=== PATIENT | female | born 1970 | race Caucasian/White ===

== ENCOUNTER 2016-05-17 15:20 | Emergency (ER) | payer MEDICAID ==
[2016-05-17 15:43] VITALS: BP 144/94
--- NOTE | 2016-05-17 17:52 | EDM.PDOC ---
ED HPI SEIZURE COMPLAINT - General Chief Complaint: Syncope Stated Complaint: BLACKING OUT Time Seen by Provider: 05/17/16 16:05 Source: Reports: Patient History Limitations: Reports: No limitations - History of Present Illness INITIAL COMMENTS - FREE TEXT/NARRATIVE: 45-year-old female with a lot of physical complaints but her chief one is that she passed out 3 times today. This has been ongoing recurring problem along with back pain, dizziness, knee pain, anxiety, insomnia, and had an appointment with her psychologist today but didn't make it because she was brought here by her boyfriend instead. She recently was started on Synthroid which seemed to help her symptoms for 2 days but is not helping now. Event (Witnessed/Unwitnessed): unwitnessed Quality: Denies: generalized shaking Severity: mild Pre Event Symptom(s): Reports: headaches, nausea/vomiting, syncope, weakness Event Symptoms: Reports: headaches, other (Photophobia) Associated Injuries: Reports: other (No injuries) - Related Data Allergies/ADRs: Allergies Allergy/AdvReac Type Severity Reaction Status Date / Time amitriptyline Allergy Change Verified 05/19/16 08:09 Mental Status duloxetine [From Cymbalta] Allergy Cannot Verified 05/17/16 15:56 Remember Home Meds: Home Meds Omeprazole [priLOSEC OTC] 80 mg PO ASDIRECTED PRN 04/12/15 [History] Pramipexole [Mirapex] 0.5 mg PO TID 04/12/15 [History] Meclizine [Antivert] 25 mg PO TID 05/05/16 [History] Levothyroxine 25 mcg PO ACBREAKFAST 05/15/16 [History] Magnesium Amino Acid Chelate [Magnesium] 100 mg PO DAILY 05/15/16 [History] Sertraline [Zoloft] 25 mg PO DAILY 05/15/16 [History] oxyCODONE HCl/Acetaminophen [Oxycodone-Acetaminophen 5-325] 1 each PO BID PRN [History] traZODone 400 mg PO BEDTIME 05/15/16 [History] Past Medical History HEENT History: Reports: Impaired vision, Other (see below) Other HEENT History: Needs a tooth extraction. 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 degenarative disc disease with bulging discs. bad si joint, right side. Neurological History: Reports: Migraines Psychiatric History: Reports: Addiction, Anxiety, Depression Endocrine/Metabolic History: Reports: Hypothyroidism Dermatologic History: Reports: Other (see below) Other Dermatologic History: intermittent rash left leg - Infectious Disease History Infectious Disease History: Reports: Chicken pox - Past Surgical History GI Surgical History: Reports: Cholecystectomy, Colonoscopy Female Surgical History: Reports: Hysterectomy, Salpingo-oophorectomy, Tubal ligation Musculoskeletal Surgical History: Reports: Knee replacement Social & Family History - Family History Family Medical History: Noncontributory - Tobacco Use Smoking Status *Q: Current Every Day Smoker Years of Tobacco use: 18 Packs/Tins Daily: 1 Used Tobacco, but Quit: No Second Hand Smoke Exposure: Yes - Caffeine Use Caffeine Use: Reports: Soda - Recreational Drug Use Recreational Drug Use: No Drug Use in Last 12 Months: Yes Recreational Drug Type: Reports: Marijuana/Hashish Recreational Drug Use Frequency: Weekly ED ROS GENERAL - Review of Systems Review Of Systems: See Below Constitutional: Reports: malaise, weakness. Denies: fever, chills HEENT: Reports: No symptoms Respiratory: Denies: shortness of breath Cardiovascular: Denies: Chest pain Endocrine: Reports: fatigue GI/Abdominal: Reports: Abdominal pain, Nausea, Other (Patient has horrible reflux). Denies: Vomiting Musculoskeletal: Reports: back pain, leg pain, joint pain Skin: Reports: no symptoms Neurological: Reports: dizziness, headache, change in speech Psychiatric: Reports: Anxiety, Depression - Physical Exam Exam: See Below Exam Limited By: No limitations General Appearance: alert, no apparent distress Eye Exam: bilateral eye: EOMI Respiratory/Chest: no respiratory distress, lungs clear Cardiovascular: regular rate, rhythm. No: extra beats GI/Abdominal: soft, other (Even mild palpation of the abdomen causes her to react with tenderness) Neuro Exam (Abbreviated): alert, oriented, no motor/sensory deficits Back Exam: other (Light palpation to the lower back or right buttock causes intense pain) Psychiatric: anxious, depressed mood Skin Exam: Warm, Dry Course - Vital Signs Last Recorded V/S: Last Vital Signs Temp 98.4 F 05/17/16 15:46 Pulse 81 05/17/16 15:46 Resp 16 05/17/16 15:46 BP 144/94 H 05/17/16 15:46 Pulse Ox 97 05/17/16 15:46 Orthostatic Blood Pressure [ 123/95 Standing] Orthostatic Blood Pressure [ 131/89 Sitting] Orthostatic Blood Pressure [ 129/83 Supine] - Re-Assessments/Exams Free Text/Narrative Re-Assessment/Exam: 05/17/16 17:50 Reviewed the clinic records and her TSH was only 4.4. Her free T4 was normal. We checked orthostatics here in the emergency room they were normal. I don't see a benefit in checking more labs as there is an obvious anxiety overlay with her symptoms and Hussain Steinberg was kind enough to come and visit with the patient after she missed her appointment earlier. Departure - Departure Time of Disposition: 18:15 Disposition: Home, Self-Care 01 Condition: good Clinical Impression: Syncope Qualifiers: Syncope type: psychogenic syncope Qualified Code(s): F48.8 - Other specified nonpsychotic mental disorders Chronic back pain Qualifiers: Back pain location: low back pain Back pain laterality: midline Sciatica presence: without sciatica Qualified Code(s): M54.5 - Low back pain Instructions: Back Pain, Adult, Syncope, [id number] Referrals: Rowan Bran PA [Primary Care Provider] - Forms: ED Department Discharge Care Plan Goals: Follow advice for followup given by Dr. Rosario. Continue regular medications and increase activity as tolerated. Keep scheduled appointments.
== END 2016-05-17 18:15 | disposition home or self-care (01) ==
LOC: JP.ED 15:20
DX: F48.8 Other specified nonpsychotic mental disorders (principal); M54.5 Low back pain; I10 Essential (primary) hypertension; F41.9 Anxiety disorder, unspecified; F32.9 Major depressive disorder, single episode, unspecified; F17.210 Nicotine dependence, cigarettes, uncomplicated; Z90.49 Acquired absence of other specified parts of digestive tract; Z90.710 Acquired absence of both cervix and uterus; Z90.721 Acquired absence of ovaries, unilateral; Z98.51 Tubal ligation status; Z96.659 Presence of unspecified artificial knee joint; Z79.899 Other long term (current) drug therapy; Z88.8 Allergy status to other drugs, medicaments and biological substances
CPT/HCPCS: 99283; 99284

== ENCOUNTER 2016-05-19 07:16 | Day surgery (SDC) | payer MEDICAID ==
[~2016-05-19 07:16] MED LIST: Dextrose 5%-Lactated Ringers 1,000 ML IV SCH; Glycopyrrolate 0.2 MG/ML 2 ML SYRINGE IVPUSH ONE
[2016-05-19] MEDS ORDERED: Midazolam 1 MG/ML 2 ML SDV ONE (07:23)
[2016-05-19] MEDS ORDERED: Propofol 200 MG/20 ML SDV ONE ×2 (07:23→10:47)
[2016-05-19] MEDS ORDERED: fentaNYL 100 MCG/2 ML SDV ONE (07:23)
[2016-05-19] MEDS ORDERED: Lactated Ringers 1,000 ML ONE (10:28)
[2016-05-19 12:16] VITALS: BP 123/80
--- NOTE | 2016-05-25 10:06 | OR ---
DATE OF PROCEDURE: 05/19/2016 PREOPERATIVE DIAGNOSES: Abdominal pain, nausea, and intermittent constipation. POSTOPERATIVE DIAGNOSES: Abdominal pain, nausea, and intermittent constipation associated with: 1. Normal upper GI endoscopy. 2. Grossly normal colonoscopy. OPERATIVE PROCEDURE: 1. Esophagogastroduodenoscopy with biopsies of antrum for CLOtest. 2. Flexible colonoscopy with random colorectal biopsies to rule out microscopic colitis. ANESTHESIA: IV sedation. INDICATION FOR PROCEDURE: The patient presents with the above stated symptoms. She presently is on omeprazole 40 mg b.i.d. and sent for upper and lower endoscopy for diagnostic purposes. Potential risks including bleeding and perforation were discussed, and the patient wishes to proceed. DETAILS OF PROCEDURE: The patient was taken to the operating room and placed in a left lateral decubitus position. IV sedation was administered, after which the upper GI endoscope was passed orally through the esophagus into the stomach with retroflexion view of the fundus, thereafter through the pyloric channel and into the duodenum to the junction of the third and fourth duodenal portions. Overall, the findings were entirely normal. There were no abnormalities noted within hypopharynx, larynx, upper esophageal sphincter, or esophageal body. No significant hiatal hernia or inflammation of the EG junction noted. The stomach had no areas of redness or significant retained bile. The pyloric channel was widely open and duodenum likewise was normal to the junction of the third and fourth portions. At this point, biopsies were obtained from the antrum to assess the patient's H. pylori status and sent for CLOtest and minimal bleeding from the biopsy site was seen and the procedure then concluded. Attention was then taken to the colonoscopy. Initial digital rectal exam was performed, was unremarkable. Colonoscope was then passed into the rectum with retroflexion revealing uncomplicated hemorrhoidal columns. The scope was eventually passed to the cecum. The prep was fairly good with only a small amount of liquid and some scattered solid stool present. Overall, findings likewise were entirely normal. As one withdrew the scope, multiple biopsies throughout the colon and rectum were obtained to rule out microscopic colitis evident with minimal bleeding from those biopsy sites was seen and the procedure then concluded. The patient was taken to the recovery room in satisfactory condition. At this point, we will not alter medical management, and the patient will be set up to see Rowan Bran PA-C, at [facility] in 7-10 days. Daniel Fair MD /[id number]
== END 2016-05-19 13:14 | disposition home or self-care (01) ==
LOC: JP.SDS 07:16
PROVIDERS: ATTEND Surgery
PROC: 0DJ08ZZ Inspection of Upper Intestinal Tract, Via Natural or Artificial Opening Endoscopic (ICD-10-PCS; principal; 2016-05-19)
PROC: 0DJD8ZZ Inspection of Lower Intestinal Tract, Via Natural or Artificial Opening Endoscopic (ICD-10-PCS; 2016-05-19)
DX: R10.9 Unspecified abdominal pain (principal); R11.0 Nausea; K59.00 Constipation, unspecified
CPT/HCPCS: 43235; 45378; 87081; 88305; J2250; J2704; J3010; J7042; J7120

== ENCOUNTER 2016-11-01 14:30 | Emergency (ER) | payer MEDICAID ==
[2016-11-01] MEDS ORDERED: Sodium Chloride 0.9% 10 ML Syringe FLUSH PRN (16:14)
[2016-11-01] MEDS ORDERED: Lactated Ringers 1,000 ML IV SCH (16:15)
[2016-11-01] MEDS ORDERED: Ondansetron 4 MG/2 ML SDV IVPUSH PRN (16:25)
[2016-11-01] MEDS ORDERED: HYDROmorphone 1 MG/ML Syringe IVPUSH ONE (16:25)
--- NOTE | 2016-11-01 16:32 | EDM.PDOC ---
<OfficerMichael - Last Filed: 11/01/16 18:25> ED HPI GENERAL MEDICAL PROBLEM - General Chief Complaint: Abdominal Pain Stated Complaint: SOB/BLACK TARRY STOOL/HAD REACTION ON MON Time Seen by Provider: 11/01/16 15:51 Source of Information: Reports: Patient, RN Notes Reviewed History Limitations: Reports: No Limitations - History of Present Illness INITIAL COMMENTS - FREE TEXT/NARRATIVE: 46-year-old female presents emergency department today complaint of abdominal pain, she states it's been progressively worse over the last couple days initially started in the center of abdomen but now migrated to her right lower quadrant, she is nauseated she states she still passing gas does have a history of Crohn disease has had a black tarry stool 1 in the past recently started nabumetone which has upset her stomach, last endoscopy was 3 months ago had a fever last night of 100.7 - Related Data Allergies Allergy/AdvReac Type Severity Reaction Status Date / Time amitriptyline Allergy Change Verified 11/01/16 15:06 Mental Status duloxetine [From Cymbalta] Allergy Cannot Verified 11/01/16 15:06 Remember Home Meds: Home Meds Omeprazole [priLOSEC OTC] 80 mg PO ASDIRECTED PRN 04/12/15 [History] Pramipexole [Mirapex] 1 mg PO TID 04/12/15 [History] Meclizine [Antivert] 25 mg PO TID 05/05/16 [History] Levothyroxine 25 mcg PO ACBREAKFAST 05/15/16 [History] Magnesium Amino Acid Chelate [Magnesium] 100 mg PO DAILY 05/15/16 [History] Sertraline [Zoloft] 25 mg PO DAILY 05/15/16 [History] oxyCODONE HCl/Acetaminophen [Oxycodone-Acetaminophen 5-325] 1 each PO BID PRN [History] traZODone 400 mg PO BEDTIME 05/15/16 [History] Past Medical History HEENT History: Reports: Impaired Vision Other HEENT History: Needs a tooth extraction. 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 degenarative disc disease with bulging discs. bad si joint, right side. tendonitis right wrist Neurological History: Reports: Migraines, Vertigo Psychiatric History: Reports: Addiction, Anxiety, Depression, Other (See Below) Other Psychiatric History: adddition in 2006 Endocrine/Metabolic History: Reports: Hypothyroidism Dermatologic History: Reports: Other (See Below) Other Dermatologic History: intermittent rash left leg - Infectious Disease History Infectious Disease History: Reports: Chicken Pox, Mononucleosis - Past Surgical History GI Surgical History: Reports: Colonoscopy, EGD Female Surgical History: Reports: Hysterectomy, Salpingo-Oophorectomy, Tubal Ligation Musculoskeletal Surgical History: Reports: Knee Replacement Social & Family History - Family History Family Medical History: Noncontributory - Tobacco Use Smoking Status *Q: Current Every Day Smoker Years of Tobacco use: 27 Packs/Tins Daily: 1 Used Tobacco, but Quit: No Second Hand Smoke Exposure: Yes - Caffeine Use Caffeine Use: Reports: None - Recreational Drug Use Recreational Drug Use: No Drug Use in Last 12 Months: Yes Recreational Drug Type: Reports: Marijuana/Hashish Recreational Drug Use Frequency: Weekly ED ROS GENERAL - Review of Systems Review Of Systems: See Below Constitutional: Reports: Fever HEENT: Reports: No Symptoms Respiratory: Reports: No Symptoms Cardiovascular: Reports: No Symptoms GI/Abdominal: Reports: Abdominal Pain, Black Stool, Flatus, Nausea. Denies: Vomiting Musculoskeletal: Reports: No Symptoms Skin: Reports: No Symptoms Neurological: Reports: No Symptoms ED EXAM, GI/ABD - Physical Exam Exam: See Below Text/Narrative:: General: Female, mild discomfort secondary to pain, alert and oriented x3 HEENT: head is atraumatic normocephalic, eyes pupils equal round reactive to light, sclera clear no conjunctivitis appreciated. Ears blocked by cerumen bilaterally. Nose no septal deviation, nares are clear, no blood present. Mouth mucosa is moist and pink no erythema or exudate noted in soft palate, tongue is midline uvula is midline, dentition is intact. Neck: Supple no thyromegaly no tracheal deviation. Nodes: Cervical nodes subclavicular nodes nontender no palpable lymphadenopathy noted. Lungs: clear to auscultation bilaterally with symmetrical respirations, no adventitious noise appreciated. CV: Regular rate and rhythm S1 and S2 appreciated no murmurs rubs or gallops noted. Abdomen: Soft, tender right lower quadrant, no palpable masses or organomegaly appreciated, no distention no guarding bowel sounds are present, psoas sign, obturator sign, heeltap sign all positive. Neuro: Cranial nerves II through XII grossly intact Skin: Warm and dry, intact Extremities: No lower extremity edema appreciated, pedal pulse is +2. Course - Vital Signs Last Recorded V/S: Last Vital Signs Temp 36.1 C 11/01/16 14:43 Pulse 82 11/01/16 18:22 Resp 16 11/01/16 18:22 BP 128/86 11/01/16 18:22 Pulse Ox 98 11/01/16 18:22 - Orders/Labs/Meds Orders: Active Orders 24 hr Category Date Time Status Peripheral IV Care [RC] . DIRECTED Care 11/01/16 16:15 Active Abdomen Ltd [US] Stat Exams 11/01/16 17:22 Taken Lactated Ringers [Ringers, Lactated] 1,000 ml Med 11/01/16 16:15 Active IV ASDIRECTED Ondansetron [Zofran] Med 11/01/16 16:25 Active 4 mg IVPUSH ONETIME PRN Sodium Chloride 0.9% [Saline Flush] Med 11/01/16 16:14 Active 10 ml FLUSH ASDIRECTED PRN ED Antiemetic Medication Reflex [OM.PC] Click to Edit Oth 11/01/16 16:25 Ordered ED Pain Medications Reflex [OM.PC] Click to Edit Oth 11/01/16 16:25 Ordered Peripheral IV Insertion Adult [OM.PC] Urgent Oth 11/01/16 16:14 Ordered Medication Orders Lactated Ringer's (Ringers, Lactated) 1,000 mls @ 500 mls/hr IV ASDIRECTED GHAZAL Last Admin: 11/01/16 16:50 Dose: 500 mls/hr Ondansetron HCl (Zofran) 4 mg IVPUSH ONETIME PRN PRN Reason: Nausea/Vomiting Last Admin: 11/01/16 17:02 Dose: 4 mg Sodium Chloride (Saline Flush) 10 ml FLUSH ASDIRECTED PRN PRN Reason: Keep Vein Open Last Admin: 11/01/16 16:51 Dose: 10 ml Labs: Laboratory Tests 11/01/16 11/01/16 11/01/16 Range/Units 16:30 16:30 16:30 WBC 6.3 (4.5-11.0) K/uL RBC 4.62 (3.30-5.50) M/uL Hgb 13.4 (12.0-15.0) g/dL Hct 41.6 (36.0-48.0) % MCV 90 (80-98) fL MCH 29 (27-31) pg MCHC 32 (32-36) % Plt Count 227 (150-400) K/uL Neut % (Auto) 51 (36-66) % Lymph % (Auto) 38 (24-44) % [place] % (Auto) 7 H (2-6) % Eos % (Auto) 2 (2-4) % Baso % (Auto) 1 (0-1) % Sodium 140 (140-148) mmol/L Potassium 3.6 (3.6-5.2) mmol/L Chloride 105 (100-108) mmol/L Carbon Dioxide 28 (21-32) mmol/L Anion Gap 7.2 (5.0-14.0) mmol/L BUN 16 (7-18) mg/dL Creatinine 0.8 (0.6-1.0) mg/dL Est Cr Clr Drug Dosing 76.68 mL/min Estimated GFR (MDRD) > 60 (>60) Glucose 86 (74-106) mg/dL Lactic Acid 0.6 (0.4-2.0) mmol/L Calcium 8.5 (8.5-10.1) mg/dL Total Bilirubin 0.3 D (0.2-1.0) mg/dL AST 13 L (15-37) U/L ALT 18 (12-78) U/L Alkaline Phosphatase 78 (46-116) U/L C-Reactive Protein (0.0-0.3) mg/dL Total Protein 7.3 (6.4-8.2) g/dL Albumin 3.5 (3.4-5.0) g/dL Globulin 3.8 H (2.3-3.5) g/dL Albumin/Globulin Ratio 0.9 L (1.2-2.2) Lipase 77 (73-393) U/L Urine Color Urine Appearance Urine pH (4.5-8.0) Ur Specific [place] (1.008-1.030) Urine Protein (NEGATIVE) mg/dL Urine Glucose (UA) (NEGATIVE) mg/dL Urine Ketones (NEGATIVE) mg/dL Urine Occult Blood (NEGATIVE) Urine Nitrite (NEGATIVE) Urine Bilirubin (NEGATIVE) Urine Urobilinogen (NORMAL) mg/dL Ur Leukocyte Esterase (NEGATIVE) Urine RBC (0-5) Urine WBC (0-5) Ur Epithelial Cells Amorphous Sediment Urine Bacteria Urine Mucus Urine HCG, Qual 11/01/16 11/01/16 11/01/16 Range/Units 16:30 16:30 18:23 WBC (4.5-11.0) K/uL RBC (3.30-5.50) M/uL Hgb (12.0-15.0) g/dL Hct (36.0-48.0) % MCV (80-98) fL MCH (27-31) pg MCHC (32-36) % Plt Count (150-400) K/uL Neut % (Auto) (36-66) % Lymph % (Auto) (24-44) % [place] % (Auto) (2-6) % Eos % (Auto) (2-4) % Baso % (Auto) (0-1) % Sodium (140-148) mmol/L Potassium (3.6-5.2) mmol/L Chloride (100-108) mmol/L Carbon Dioxide (21-32) mmol/L Anion Gap (5.0-14.0) mmol/L BUN (7-18) mg/dL Creatinine (0.6-1.0) mg/dL Est Cr Clr Drug Dosing mL/min Estimated GFR (MDRD) (>60) Glucose (74-106) mg/dL Lactic Acid (0.4-2.0) mmol/L Calcium (8.5-10.1) mg/dL Total Bilirubin (0.2-1.0) mg/dL AST (15-37) U/L ALT (12-78) U/L Alkaline Phosphatase (46-116) U/L C-Reactive Protein 0.11 (0.0-0.3) mg/dL Total Protein (6.4-8.2) g/dL Albumin (3.4-5.0) g/dL Globulin (2.3-3.5) g/dL Albumin/Globulin Ratio (1.2-2.2) Lipase (73-393) U/L Urine Color Yellow Urine Appearance Clear Urine pH 5.0 (4.5-8.0) Ur Specific [place] 1.025 (1.008-1.030) Urine Protein Negative (NEGATIVE) mg/dL Urine Glucose (UA) Normal (NEGATIVE) mg/dL Urine Ketones 15 H (NEGATIVE) mg/dL Urine Occult Blood Negative (NEGATIVE) Urine Nitrite Negative (NEGATIVE) Urine Bilirubin Small (NEGATIVE) Urine Urobilinogen Normal (NORMAL) mg/dL Ur Leukocyte Esterase Negative (NEGATIVE) Urine RBC Not seen (0-5) Urine WBC 0-5 (0-5) Ur Epithelial Cells Few Amorphous Sediment Not seen Urine Bacteria Few Urine Mucus Moderate Urine HCG, Qual Negative Meds: Medications Generic Name Dose Route Start Last Admin Trade Name Freq PRN Reason Stop Dose Admin Lactated Ringer's 1,000 mls @ 500 mls/hr 11/01/16 16:15 11/01/16 16:50 Ringers, Lactated IV 500 mls/hr ASDIRECTED GHAZAL Administration Ondansetron HCl 4 mg 11/01/16 16:25 11/01/16 17:02 Zofran IVPUSH 4 mg ONETIME PRN Administration Nausea/Vomiting Sodium Chloride 10 ml 11/01/16 16:14 11/01/16 16:51 Saline Flush FLUSH 10 ml ASDIRECTED PRN Administration Keep Vein Open Discontinued Medications Generic Name Dose Route Start Last Admin Trade Name Freq PRN Reason Stop Dose Admin Hydromorphone HCl 1 mg 11/01/16 16:25 11/01/16 17:04 Dilaudid IVPUSH 11/01/16 16:26 1 mg .ONETIME ONE Administration Departure - Departure Disposition: Home, Self-Care 01 Clinical Impression: Crohns disease, Abdominal pain - Discharge Information Instructions: Abdominal Pain, Adult, [id number], Crohn Disease Referrals: Rowan Bran PA [Primary Care Provider] - Forms: ED Department Discharge Care Plan Goals: rtc if fevers and pain persists. If pain remains severe in the next 36 hours pt definitely needs a cat scan of the abdoman. norco 5/325 q6h prn for pain. <Melina Garcia - Last Filed: 11/01/16 19:11> Course - Re-Assessments/Exams Free Text/Narrative Re-Assessment/Exam: 11/01/16 19:00 pt had a us which did not show sig abnormalities. She has both ovaries removed. 11/01/16 19:02 pt states her pain is much better. Departure - Departure Time of Disposition: 19:03 Condition: Fair
[2016-11-01 18:23] VITALS: BP 128/86
--- NOTE | 2016-11-02 08:33 | US ---
Abdomen Ltd INDICATION: pain RLQ COMPARISON: None FINDINGS: Exam performed for evaluation of possible appendicitis. The right lower quadrant was image d. The appendix is not visualized. No abnormal fluid collections. Peristalsing bowel is seen in the right lower quadrant. IMPRESSION: Appendix not visualized. No abnormalities seen in the right lower quadrant; however, thi s exam does not exclude acute appendicitis. If clinical concern persists, recommend CT.
== END 2016-11-01 19:18 | disposition home or self-care (01) ==
LOC: JP.ED 14:30
DX: K50.90 Crohn's disease, unspecified, without complications (principal); I10 Essential (primary) hypertension; K21.9 Gastro-esophageal reflux disease without esophagitis; F41.9 Anxiety disorder, unspecified; F32.9 Major depressive disorder, single episode, unspecified; E03.9 Hypothyroidism, unspecified; F17.210 Nicotine dependence, cigarettes, uncomplicated; Z79.899 Other long term (current) drug therapy; Z88.8 Allergy status to other drugs, medicaments and biological substances; Z90.710 Acquired absence of both cervix and uterus; Z90.721 Acquired absence of ovaries, unilateral; Z98.51 Tubal ligation status; Z96.659 Presence of unspecified artificial knee joint
CPT/HCPCS: 36415; 76705; 80053; 81001; 81025; 83605; 83690; 85025; 86140; 96361; 96374; 96375; 99284; J1170; J2405; J7050; J7120

== ENCOUNTER 2016-11-02 08:19 | Emergency (ER) | payer MEDICAID ==
[2016-11-02] MEDS ORDERED: Sodium Chloride 0.9% 10 ML Syringe FLUSH PRN (08:59)
[2016-11-02] MEDS ORDERED: Lactated Ringers 1,000 ML IV SCH (09:00)
[2016-11-02] MEDS ORDERED: Morphine 2 MG/ML Syringe IVPUSH ONE (09:01)
[2016-11-02] MEDS ORDERED: Ondansetron 4 MG/2 ML SDV IVPUSH ONE (09:01)
--- NOTE | 2016-11-02 09:05 | EDM.PDOC ---
ED HPI GENERAL MEDICAL PROBLEM - General Chief Complaint: Abdominal Pain Stated Complaint: RIGHT SIDED ABDOMINAL PAIN Time Seen by Provider: 11/02/16 08:56 Source of Information: Reports: Patient, Old Records, RN Notes Reviewed History Limitations: Reports: No Limitations - History of Present Illness INITIAL COMMENTS - FREE TEXT/NARRATIVE: 46-year-old female presents emergency department day complaint of abdominal pain , I did have the opportunity to evaluate her yesterday which she had right lower quadrant pain at the time the workup included blood work and an ultrasound which were allusive to the etiology of the pain we did offer CAT scan last night however she declined. She was discharged home with pain medication and told return if the pain became more severe or was not resolving. States the pain has gotten more severe is predominantly in the right lower quadrant she's also developed nausea and vomiting that is ongoing no fevers at this time Right Lower Abdomen Pain Score (Numeric/FACES): 9 - Related Data Allergies Allergy/AdvReac Type Severity Reaction Status Date / Time duloxetine [From Cymbalta] Allergy Cannot Verified 11/02/16 08:41 Remember amitriptyline AdvReac Change Verified 11/02/16 11:08 Mental Status Home Meds: Home Meds Omeprazole [priLOSEC OTC] 80 mg PO ASDIRECTED PRN 04/12/15 [History] Pramipexole [Mirapex] 1 mg PO TID 04/12/15 [History] Meclizine [Antivert] 25 mg PO TID 05/05/16 [History] Levothyroxine 25 mcg PO ACBREAKFAST 05/15/16 [History] Magnesium Amino Acid Chelate [Magnesium] 100 mg PO DAILY 05/15/16 [History] Sertraline [Zoloft] 25 mg PO DAILY 05/15/16 [History] oxyCODONE HCl/Acetaminophen [Oxycodone-Acetaminophen 5-325] 1 each PO BID PRN [History] traZODone 400 mg PO BEDTIME 05/15/16 [History] Past Medical History HEENT History: Reports: Impaired Vision Other HEENT History: Needs a tooth extraction. 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 degenarative disc disease with bulging discs. bad si joint, right side. tendonitis right wrist Neurological History: Reports: Migraines, Vertigo Psychiatric History: Reports: Addiction, Anxiety, Depression, Other (See Below) Other Psychiatric History: adddition in 2006 Endocrine/Metabolic History: Reports: Hypothyroidism Dermatologic History: Reports: Other (See Below) Other Dermatologic History: intermittent rash left leg - Infectious Disease History Infectious Disease History: Reports: Chicken Pox - Past Surgical History GI Surgical History: Reports: Colonoscopy, EGD Social & Family History - Family History Family Medical History: Noncontributory - Tobacco Use Smoking Status *Q: Current Every Day Smoker Years of Tobacco use: 27 Packs/Tins Daily: 1 Used Tobacco, but Quit: No Second Hand Smoke Exposure: Yes - Caffeine Use Caffeine Use: Reports: None - Recreational Drug Use Recreational Drug Use: No Drug Use in Last 12 Months: Yes Recreational Drug Type: Reports: Marijuana/Hashish Recreational Drug Use Frequency: Weekly ED ROS GENERAL - Review of Systems Review Of Systems: See Below Constitutional: Denies: Fever, Chills HEENT: Reports: No Symptoms Respiratory: Reports: No Symptoms Cardiovascular: Reports: No Symptoms GI/Abdominal: Reports: Abdominal Pain, Nausea, Vomiting. Denies: Flatus : Reports: No Symptoms Musculoskeletal: Reports: No Symptoms Skin: Reports: No Symptoms ED EXAM, GI/ABD - Physical Exam Exam: See Below Exam Limited By: No Limitations General Appearance: Alert, Moderate Distress (Secondary to pain) Respiratory/Chest: No Respiratory Distress, Lungs Clear, Normal Breath Sounds, No Accessory Muscle Use, Chest Non-Tender Cardiovascular: Regular Rate, Rhythm, No Murmur GI/Abdominal Exam: Normal Bowel Sounds, Soft, No Distention, Guarding, Tender ( Tender right lower quadrant). No: Distended, Rigid, Rebound, Abnormal Bowel Sounds Course - Vital Signs Last Recorded V/S: Last Vital Signs Temp 99.3 F 11/02/16 12:10 Pulse 80 11/02/16 12:10 Resp 16 11/02/16 12:10 BP 147/53 H 11/02/16 12:10 Pulse Ox 99 11/02/16 12:10 - Orders/Labs/Meds Orders: Active Orders 24 hr Category Date Time Status Peripheral IV Care [RC] . DIRECTED Care 11/02/16 09:00 Active Iopamidol [Isovue-300 (61%)] Med 11/02/16 09:33 Active 100 ml IV . DIRECTED PRN Lactated Ringers [Ringers, Lactated] 1,000 ml Med 11/02/16 09:00 Active IV ASDIRECTED Sodium Chloride 0.9% [Normal Saline] 76 ml Med 11/02/16 09:45 Active IV ASDIRECTED Sodium Chloride 0.9% [Saline Flush] Med 11/02/16 08:59 Active 10 ml FLUSH ASDIRECTED PRN Peripheral IV Insertion Adult [OM.PC] Urgent Oth 11/02/16 08:59 Ordered Medication Orders Lactated Ringer's (Ringers, Lactated) 1,000 mls @ 999 mls/hr IV ASDIRECTED [facility] Last Admin: 11/02/16 09:29 Dose: 999 mls/hr Sodium Chloride (Normal Saline) 76 mls @ 3.2 mls/sec IV ASDIRECTED GHAZAL Last Admin: 11/02/16 09:55 Dose: 3.2 mls/sec Iopamidol (Isovue-300 (61%)) 100 ml IV . DIRECTED PRN PRN Reason: RADIOLOGY EXAM Stop: 11/03/16 09:34 Last Admin: 11/02/16 09:55 Dose: 100 ml Sodium Chloride (Saline Flush) 10 ml FLUSH ASDIRECTED PRN PRN Reason: Keep Vein Open Labs: Laboratory Tests 11/02/16 11/02/16 11/02/16 Range/Units 09:03 09:03 09:03 WBC 6.2 (4.5-11.0) K/uL RBC 4.48 (3.30-5.50) M/uL Hgb 13.2 (12.0-15.0) g/dL Hct 40.4 (36.0-48.0) % MCV 90 (80-98) fL MCH 30 (27-31) pg MCHC 33 (32-36) % Plt Count 208 (150-400) K/uL Neut % (Auto) 59 (36-66) % Lymph % (Auto) 30 (24-44) % Castro % (Auto) 8 H (2-6) % Eos % (Auto) 2 (2-4) % Baso % (Auto) 1 (0-1) % Sodium 140 (140-148) mmol/L Potassium 4.1 (3.6-5.2) mmol/L Chloride 106 (100-108) mmol/L Carbon Dioxide 28 (21-32) mmol/L Anion Gap 5.9 (5.0-14.0) mmol/L BUN 17 (7-18) mg/dL Creatinine 0.8 (0.6-1.0) mg/dL Est Cr Clr Drug Dosing 76.68 mL/min Estimated GFR (MDRD) > 60 (>60) Glucose 94 (74-106) mg/dL Lactic Acid 0.7 (0.4-2.0) mmol/L Calcium 8.8 (8.5-10.1) mg/dL Total Bilirubin 0.2 (0.2-1.0) mg/dL AST 13 L (15-37) U/L ALT 18 (12-78) U/L Alkaline Phosphatase 87 (46-116) U/L Total Protein 7.1 (6.4-8.2) g/dL Albumin 3.3 L (3.4-5.0) g/dL Globulin 3.8 H (2.3-3.5) g/dL Albumin/Globulin Ratio 0.9 L (1.2-2.2) Lipase 111 (73-393) U/L Urine Color Urine Appearance Urine pH (4.5-8.0) Ur Specific [place] (1.008-1.030) Urine Protein (NEGATIVE) mg/dL Urine Glucose (UA) (NEGATIVE) mg/dL Urine Ketones (NEGATIVE) mg/dL Urine Occult Blood (NEGATIVE) Urine Nitrite (NEGATIVE) Urine Bilirubin (NEGATIVE) Urine Urobilinogen (NORMAL) mg/dL Ur Leukocyte Esterase (NEGATIVE) Urine RBC (0-5) Urine WBC (0-5) Ur Epithelial Cells Amorphous Sediment Urine Bacteria Urine Mucus Urine Opiates Screen (NEGATIVE) Ur Oxycodone Screen (NEGATIVE) Urine Methadone Screen (NEGATIVE) Ur Propoxyphene Screen (NEGATIVE) Ur Barbiturates Screen (NEGATIVE) Ur Tricyclics Screen (NEGATIVE) Ur Phencyclidine Scrn (NEGATIVE) Ur Amphetamine Screen (NEGATIVE) U Methamphetamines Scrn (NEGATIVE) Urine MDMA Screen (NEGATIVE) U Benzodiazepines Scrn (NEGATIVE) U Cocaine Metab Screen (NEGATIVE) U Marijuana (THC) Screen (NEGATIVE) 11/02/16 11/02/16 Range/Units 09:24 10:36 WBC (4.5-11.0) K/uL RBC (3.30-5.50) M/uL Hgb (12.0-15.0) g/dL Hct (36.0-48.0) % MCV (80-98) fL MCH (27-31) pg MCHC (32-36) % Plt Count (150-400) K/uL Neut % (Auto) (36-66) % Lymph % (Auto) (24-44) % Castro % (Auto) (2-6) % Eos % (Auto) (2-4) % Baso % (Auto) (0-1) % Sodium (140-148) mmol/L Potassium (3.6-5.2) mmol/L Chloride (100-108) mmol/L Carbon Dioxide (21-32) mmol/L Anion Gap (5.0-14.0) mmol/L BUN (7-18) mg/dL Creatinine (0.6-1.0) mg/dL Est Cr Clr Drug Dosing mL/min Estimated GFR (MDRD) (>60) Glucose (74-106) mg/dL Lactic Acid (0.4-2.0) mmol/L Calcium (8.5-10.1) mg/dL Total Bilirubin (0.2-1.0) mg/dL AST (15-37) U/L ALT (12-78) U/L Alkaline Phosphatase (46-116) U/L Total Protein (6.4-8.2) g/dL Albumin (3.4-5.0) g/dL Globulin (2.3-3.5) g/dL Albumin/Globulin Ratio (1.2-2.2) Lipase (73-393) U/L Urine Color Yellow Urine Appearance Slightly cloudy Urine pH 5.0 (4.5-8.0) Ur Specific [place] 1.020 (1.008-1.030) Urine Protein Negative (NEGATIVE) mg/dL Urine Glucose (UA) Normal (NEGATIVE) mg/dL Urine Ketones Negative (NEGATIVE) mg/dL Urine Occult Blood Negative (NEGATIVE) Urine Nitrite Negative (NEGATIVE) Urine Bilirubin Negative (NEGATIVE) Urine Urobilinogen Normal (NORMAL) mg/dL Ur Leukocyte Esterase Negative (NEGATIVE) Urine RBC Not seen (0-5) Urine WBC 0-5 (0-5) Ur Epithelial Cells Moderate Amorphous Sediment Few Urine Bacteria Moderate Urine Mucus Few Urine Opiates Screen Negative (NEGATIVE) Ur Oxycodone Screen Positive H (NEGATIVE) Urine Methadone Screen Negative (NEGATIVE) Ur Propoxyphene Screen Negative (NEGATIVE) Ur Barbiturates Screen Negative (NEGATIVE) Ur Tricyclics Screen Positive H (NEGATIVE) Ur Phencyclidine Scrn Negative (NEGATIVE) Ur Amphetamine Screen Negative (NEGATIVE) U Methamphetamines Scrn Negative (NEGATIVE) Urine MDMA Screen Negative (NEGATIVE) U Benzodiazepines Scrn Negative (NEGATIVE) U Cocaine Metab Screen Negative (NEGATIVE) U Marijuana (THC) Screen Positive H (NEGATIVE) Meds: Medications Generic Name Dose Route Start Last Admin Trade Name Freq PRN Reason Stop Dose Admin Lactated Ringer's 1,000 mls @ 999 mls/hr 11/02/16 09:00 11/02/16 09:29 Ringers, Lactated IV 999 mls/hr ASDIRECTED GHAZAL Administration Sodium Chloride 76 mls @ 3.2 mls/sec 11/02/16 09:45 11/02/16 09:55 Normal Saline IV 3.2 mls/sec ASDIRECTED GHAZAL Administration Iopamidol 100 ml 11/02/16 09:33 11/02/16 09:55 Isovue-300 (61%) IV 11/03/16 09:34 100 ml . DIRECTED PRN Administration RADIOLOGY EXAM Sodium Chloride 10 ml 11/02/16 08:59 Saline Flush FLUSH ASDIRECTED PRN Keep Vein Open Discontinued Medications Generic Name Dose Route Start Last Admin Trade Name Freq PRN Reason Stop Dose Admin Hyoscyamine 0.125 mg 11/02/16 10:54 11/02/16 11:18 Hyomax-Sl SL 11/02/16 10:55 0.125 mg ONETIME ONE Administration Morphine Sulfate 2 mg 11/02/16 09:01 11/02/16 09:24 Morphine IVPUSH 11/02/16 09:02 2 mg ONETIME ONE Administration Ondansetron HCl 4 mg 11/02/16 09:01 11/02/16 09:23 Zofran IVPUSH 11/02/16 09:02 4 mg ONETIME ONE Administration Sodium Chloride 10 ml 11/02/16 09:33 11/02/16 09:55 Saline Flush FLUSH 11/02/16 09:34 10 ml ONETIME ONE Administration Departure - Departure Time of Disposition: 12:18 Disposition: Home, Self-Care 01 Condition: Poor Clinical Impression: Abdominal pain Qualifiers: Abdominal location: right lower quadrant Qualified Code(s): R10.31 - Right lower quadrant pain - Discharge Information Forms: ED Department Discharge Additional Instructions: Please follow-up with your primary care provider for further evaluation next week, call or return to the emergency department worsening of symptoms - My Orders Last 24 Hours: My Active Orders 11/02/16 08:59 Sodium Chloride 0.9% [Saline Flush] 10 ml FLUSH ASDIRECTED PRN Peripheral IV Insertion Adult [OM.PC] Urgent 11/02/16 09:00 Peripheral IV Care [RC] . DIRECTED Lactated Ringers [Ringers, Lactated] 1,000 ml IV ASDIRECTED 11/02/16 09:33 Iopamidol [Isovue-300 (61%)] 100 ml IV . DIRECTED PRN 11/02/16 09:45 Sodium Chloride 0.9% [Normal Saline] 76 ml IV ASDIRECTED - Assessment/Plan Last 24 Hours: My Active Orders 11/02/16 08:59 Sodium Chloride 0.9% [Saline Flush] 10 ml FLUSH ASDIRECTED PRN Peripheral IV Insertion Adult [OM.PC] Urgent 11/02/16 09:00 Peripheral IV Care [RC] . DIRECTED Lactated Ringers [Ringers, Lactated] 1,000 ml IV ASDIRECTED 11/02/16 09:33 Iopamidol [Isovue-300 (61%)] 100 ml IV . DIRECTED PRN 11/02/16 09:45 Sodium Chloride 0.9% [Normal Saline] 76 ml IV ASDIRECTED Plan: Assessment Acuity = acute on chronic Site and laterality = abdominal pain Etiology = unclear etiology Manifestations = none Location of injury = Home Lab values = CBC, CMP, urinalysis, CT scan all within normal limits Plan I did review lab results and image studies with her she also admitted to me that she is having incontinence of bowel and stool for the last 3 months which she failed to mention on the last 2 visits she also admits to having chronic back pain I discussed this with her primary care provider who will see her next week in clinic discussed the possibility of an MRI lumbar area which she has had approximately one year ago records are unavailable to me at this time Patient was in agreement with the plan all questions were answered, they were instructed to return to the emergency department or call for worsening symptoms. This note was dictated using [email or web address] voice recognition software please call with any questions.
[2016-11-02] MEDS ORDERED: Sodium Chloride 0.9% 10 ML Syringe FLUSH ONE (09:33)
[2016-11-02] MEDS ORDERED: Iopamidol 612 MG/ML 100 ML Bottle IV PRN (09:33)
--- NOTE | 2016-11-02 10:32 | CT ---
Abdomen Pelvis w Cont INDICATION: rlq pain TECHNIQUE: CT images of the abdomen and pelvis performed. Coronal reformatted images obtained. IV contrast only DLP: 933 mGycm COMPARISON: CT 05/01/2016 FINDINGS: No acute interval change since the prior study. Cholecystectomy. Liver, spleen, pancrea s, adrenal glands, and kidneys unremarkable. No renal calculi or hydronephrosis. Normal appendix. Mo derate amount of stool throughout the colon. No signs of bowel obstruction. No ascites or free air. Tiny fat-containing umbilical hernia. Urinary bladder unremarkable. No evidence of diverticulitis or bowel obstruction. Abdominal aorta normal caliber. Nothing acute in the pelvis. IMPRESSION: Nothing acute. No acute change since 05/01/2016. No signs of appendicitis.
[2016-11-02] MEDS ORDERED: Hyoscyamine 0.125 MG Tab.SL SL ONE (10:54)
[2016-11-02 12:12] VITALS: BP 147/53
== END 2016-11-02 12:31 | disposition home or self-care (01) ==
LOC: JP.ED 08:19
DX: R10.31 Right lower quadrant pain (principal); I10 Essential (primary) hypertension; K21.9 Gastro-esophageal reflux disease without esophagitis; F41.9 Anxiety disorder, unspecified; F32.9 Major depressive disorder, single episode, unspecified; E03.9 Hypothyroidism, unspecified; F17.210 Nicotine dependence, cigarettes, uncomplicated; Z79.899 Other long term (current) drug therapy; Z88.8 Allergy status to other drugs, medicaments and biological substances
CPT/HCPCS: 36415; 74177; 80053; 80305; 81001; 83605; 83690; 85025; 96361; 96374; 96375; 99284; A9270; J2270; J2405; J7030; J7050; J7120; Q9967

== ENCOUNTER 2017-04-11 13:56 | Emergency (ER) | payer MEDICAID ==
[2017-04-11 14:28] VITALS: BP 168/100
--- NOTE | 2017-04-11 14:39 | EDM.PDOC ---
ED HPI GENERAL MEDICAL PROBLEM - General Chief Complaint: ENT Problem Stated Complaint: TOOTH ACHE Time Seen by Provider: 04/11/17 14:30 Source of Information: Reports: Patient, RN Notes Reviewed History Limitations: Reports: No Limitations - History of Present Illness INITIAL COMMENTS - FREE TEXT/NARRATIVE: 46-year-old female presents emergency department today with complaint of dental pain, she was referred by the dental clinic feel she has an abscess I would like her started on antibiotics and pain control they will see her on April 16 Face Pain Score (Numeric/FACES): 8 - Related Data Allergies Allergy/AdvReac Type Severity Reaction Status Date / Time amitriptyline AdvReac Change Verified 04/11/17 14:19 Mental Status duloxetine [From Cymbalta] AdvReac Cannot Verified 04/11/17 14:19 Remember Home Meds: Home Meds Omeprazole [priLOSEC OTC] 80 mg PO ASDIRECTED PRN 04/12/15 [History] Pramipexole [Mirapex] 1 mg PO TID 04/12/15 [History] Levothyroxine 25 mcg PO ACBREAKFAST 05/15/16 [History] Sertraline [Zoloft] 25 mg PO DAILY 05/15/16 [History] Pramipexole Di-HCl [Pramipexole Dihydrochloride] 1 mg PO DAILY 04/11/17 [History ] Past Medical History HEENT History: Reports: Impaired Vision Other HEENT History: Needs a tooth extraction. 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 degenarative disc disease with bulging discs. bad si joint, right side. tendonitis right wrist Neurological History: Reports: Migraines, Vertigo Psychiatric History: Reports: Addiction, Anxiety, Depression, Other (See Below) Other Psychiatric History: adddition in 2006 Endocrine/Metabolic History: Reports: Hypothyroidism Dermatologic History: Reports: Other (See Below) Other Dermatologic History: intermittent rash left leg - Infectious Disease History Infectious Disease History: Reports: Chicken Pox - Past Surgical History GI Surgical History: Reports: Colonoscopy, EGD Social & Family History - Family History Family Medical History: Noncontributory - Tobacco Use Smoking Status *Q: Current Every Day Smoker Years of Tobacco use: 28 Packs/Tins Daily: 1 Used Tobacco, but Quit: No Second Hand Smoke Exposure: Yes - Caffeine Use Caffeine Use: Reports: Coffee, Soda - Recreational Drug Use Recreational Drug Use: Yes Drug Use in Last 12 Months: Yes Recreational Drug Type: Reports: Marijuana/Hashish Recreational Drug Use Frequency: Weekly ED ROS ENT - Review of Systems Review Of Systems: See Below Constitutional: Reports: Fever HEENT: Reports: Dental Pain Respiratory: Reports: No Symptoms Cardiovascular: Reports: No Symptoms ED EXAM, ENT - Physical Exam Exam: See Below Text/Narrative:: Mouth mucosa is moist and pink no erythema or exudate noted in soft palate tongue is midline she does have a dental trauma and caries on tooth #18 there is tenderness to palpation around tooth she does have some edema in the anterior cervical chain with lymphadenopathy appreciated on the left side Course - Vital Signs Last Recorded V/S: Last Vital Signs Temp 97.0 F 04/11/17 14:11 Pulse 74 04/11/17 14:11 Resp 16 04/11/17 14:11 BP 168/100 H 04/11/17 14:11 Pulse Ox 97 04/11/17 14:11 Departure - Departure Time of Disposition: 14:39 Disposition: Home, Self-Care 01 Condition: Good Clinical Impression: Dental abscess - Discharge Information Referrals: Rowan Bran PA [Primary Care Provider] - Additional Instructions: Take full course of antibiotics, use hydrocodone as needed for pain control, please keep your follow-up appointment with dentistry on Sunday - Assessment/Plan Plan: Assessment Acuity = acute Site and laterality = dental abscess tooth #18 Etiology = bacterial cause Manifestations = pain Location of injury = Home Lab values = none Plan Prescription written for Augmentin 875 by mouth twice a day 10 days, hydrocodone 5/325 one tab by mouth 3 times a day when necessary total #10 she is a follow-up appointment with the dental clinic on April 16 This note was dictated using [employer] voice recognition software please call with any questions on syntax or darya.
== END 2017-04-11 15:07 | disposition home or self-care (01) ==
LOC: JP.ED 13:56
DX: K04.7 Periapical abscess without sinus (principal); A49.9 Bacterial infection, unspecified; F17.210 Nicotine dependence, cigarettes, uncomplicated; I10 Essential (primary) hypertension; Z88.8 Allergy status to other drugs, medicaments and biological substances; Z79.899 Other long term (current) drug therapy
CPT/HCPCS: 99283

== ENCOUNTER 2017-08-29 14:21 | Emergency (ER) | payer SELFPAY ==
--- NOTE | 2017-08-29 14:45 | EDM.PDOC ---
ED HPI GENERAL MEDICAL PROBLEM - General Chief Complaint: Lower Extremity Injury/Pain Stated Complaint: HURT FOOT Time Seen by Provider: 08/29/17 14:39 Source of Information: Reports: Patient, RN Notes Reviewed History Limitations: Reports: No Limitations - History of Present Illness INITIAL COMMENTS - FREE TEXT/NARRATIVE: 46-year-old female presents to the emergency department today with complaint of left foot and ankle pain, she injured herself while going up a hill with a twisting injury her to large pop and now it's difficult for her to ambulate. Left Ankle Pain Score (Numeric/FACES): 10 - Related Data Allergies Allergy/AdvReac Type Severity Reaction Status Date / Time No Known Allergies Allergy Verified 08/29/17 14:27 Home Meds: Home Meds Omeprazole [priLOSEC OTC] 80 mg PO DAILY 04/12/15 [History] Pramipexole [Mirapex] 1 mg PO TID 04/12/15 [History] Levothyroxine 25 mcg PO ACBREAKFAST 05/15/16 [History] Escitalopram Oxalate [Lexapro] 5 mg PO DAILY 08/29/17 [History] Past Medical History HEENT History: Reports: Impaired Vision Other HEENT History: Needs a tooth extraction. 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 degenarative disc disease with bulging discs. bad si joint, right side. tendonitis right wrist, CHRONIC L ANKLE PAIN Neurological History: Reports: Migraines, Vertigo Psychiatric History: Reports: Addiction, Anxiety, Depression, Other (See Below) Other Psychiatric History: adddition in 2006 Endocrine/Metabolic History: Reports: Hypothyroidism Dermatologic History: Reports: Other (See Below) Other Dermatologic History: intermittent rash left leg - Infectious Disease History Infectious Disease History: Reports: Chicken Pox - Past Surgical History GI Surgical History: Reports: Colonoscopy, EGD Social & Family History - Family History Family Medical History: Noncontributory - Tobacco Use Smoking Status *Q: Unknown Ever Smoked - Caffeine Use Caffeine Use: Reports: Coffee, Soda Review of Systems - Review of Systems Review Of Systems: See Below Respiratory: Reports: No Symptoms Cardiovascular: Reports: No Symptoms Musculoskeletal: Reports: Joint Pain (Left ankle) Skin: Reports: Other (Edema over the ankle) Neurological: Reports: No Symptoms ED EXAM, GENERAL - Physical Exam Exam: See Below Free Text/Narrative:: Examination of the left ankle I do appreciate some edema over the lateral malleolus. Extensive pain with minimal palpation difficult to perform any exam, pedal pulse is +2 sensation is intact Exam Limited By: No Limitations General Appearance: Alert, Mild Distress Respiratory/Chest: No Respiratory Distress Course - Vital Signs Last Recorded V/S: Last Vital Signs Temp 99.3 F 08/29/17 14:22 Pulse 73 08/29/17 14:22 Resp 18 08/29/17 14:22 BP 138/65 08/29/17 14:22 Pulse Ox 97 08/29/17 14:22 - Orders/Labs/Meds Orders: Active Orders 24 hr Category Date Time Status DME for Discharge [COMM] Per Unit Routine Oth 08/29/17 15:21 Ordered Meds: Medications Discontinued Medications Generic Name Dose Route Start Last Admin Trade Name Triny PRN Reason Stop Dose Admin Fentanyl 50 mcg 08/29/17 15:20 Sublimaze IM 08/29/17 15:21 ONETIME ONE Ketorolac Tromethamine 30 mg 08/29/17 14:41 08/29/17 15:03 Toradol IM 08/29/17 14:42 30 mg ONETIME ONE Administration Lorazepam 1 mg 08/29/17 15:20 Ativan PO 08/29/17 15:21 ONETIME ONE Departure - Departure Time of Disposition: 15:23 Disposition: Home, Self-Care 01 Condition: Good Clinical Impression: Left ankle sprain Qualifiers: Encounter type: initial encounter Involved ligament of ankle: unspecified ligament Qualified Code(s): S93.402A - Sprain of unspecified ligament of left ankle, initial encounter - Discharge Information Referrals: PCP,None [Primary Care Provider] - Forms: ED Department Discharge Additional Instructions: Continue to use crutches and your AirGel splint for comfort, please keep your follow-up appointment with orthopedics, use Tylenol or ibuprofen as needed for pain control - My Orders Last 24 Hours: My Active Orders 08/29/17 15:21 DME for Discharge [COMM] Per Unit Routine - Assessment/Plan Last 24 Hours: My Active Orders 08/29/17 15:21 DME for Discharge [COMM] Per Unit Routine Plan: Assessment Acuity = acute Site and laterality = left ankle sprain Etiology = secondary to twisting injury Manifestations = none Location of injury = Home Lab values = x-rays reveal no acute fracture Plan She had some relief from the Toradol injection, was provided combination fentanyl and Ativan for further pain relief, placed in an air gel splint and crutches use ibuprofen or Tylenol as needed for pain control she does have a MRI scheduled by orthopedics upcoming This note was dictated using [employer] voice recognition software please call with any questions on syntax or grammar.
[2017-08-29] MEDS: Ketorolac 30 MG/ML SDV IM ONE (15:03)
[2017-08-29 15:04] VITALS: BP 138/65
--- NOTE | 2017-08-29 15:19 | CR ---
Ankle Min 3V Lt CLINICAL HISTORY: Pain FINDINGS: The soft tissues are mildly prominent. No acute fracture or dislocation is noted. Ankle mor tise is intact. Articular surfaces are smooth. There is a small calcaneal spur. Impression: No fracture Small calcaneal spur
--- NOTE | 2017-08-29 15:20 | CR ---
Foot 2V Lt CLINICAL HISTORY: Pain, trauma FINDINGS: There is no acute fracture or dislocation within the foot. No destructive changes are prese nt. There is a small calcaneal spur. There are some hammertoe deformities. IMPRESSION: No acute bony process. Mild hammertoe deformities
[2017-08-29] MEDS: LORazepam 1 MG Tab PO ONE (15:33)
[2017-08-29] MEDS: fentaNYL 100 MCG/2 ML SDV IM ONE (15:33)
== END 2017-08-29 15:53 | disposition home or self-care (01) ==
LOC: JP.ED 14:21
DX: S93.402A Sprain of unspecified ligament of left ankle, initial encounter (principal); I10 Essential (primary) hypertension; Z79.899 Other long term (current) drug therapy; X50.9XXA Other and unspecified overexertion or strenuous movements or postures, initial encounter
CPT/HCPCS: 73610; 73620; 96372; 99284; A9270; J1885; J3010

== ENCOUNTER 2017-11-11 23:46 | Emergency (ER) | payer MEDICAID ==
[2017-11-12 00:06] VITALS: BP 139/106
[2017-11-12] MEDS ORDERED: fentaNYL 100 MCG/2 ML SDV IVPUSH ONE ×2 (00:15→01:04)
[2017-11-12] MEDS ORDERED: Ondansetron 4 MG/2 ML SDV IVPUSH ONE (00:15)
[2017-11-12] MEDS ORDERED: Lactated Ringers 1,000 ML IV SCH (00:15)
--- NOTE | 2017-11-12 00:19 | EDM.PDOC ---
ED HPI GENERAL MEDICAL PROBLEM - General Chief Complaint: Abdominal Pain Stated Complaint: severe abdominal pain Time Seen by Provider: 11/12/17 00:08 Source of Information: Reports: Patient, RN Notes Reviewed History Limitations: Reports: No Limitations - History of Present Illness INITIAL COMMENTS - FREE TEXT/NARRATIVE: 47-year-old female presents to the emergency department today with complaint of abdominal pain, she states the pain started suddenly this evening it is mostly in the center of her abdomen but then migrates down into her right lower quadrant she does have a history of Crohn's disease, did have some nausea and vomiting while in the emergency department feels short of breath because the pain is so intense no problems bowel movements no problems with urination. Past surgical history includes cholecystectomy and total abdominal hysterectomy epigastric Pain Score (Numeric/FACES): 7 - Related Data Allergies Allergy/AdvReac Type Severity Reaction Status Date / Time citalopram Allergy Cannot Verified 11/11/17 23:49 Remember Home Meds: Home Meds Omeprazole [priLOSEC OTC] 80 mg PO DAILY 04/12/15 [History] Pramipexole [Mirapex] 1 mg PO TID 04/12/15 [History] Levothyroxine 25 mcg PO ACBREAKFAST 05/15/16 [History] Escitalopram Oxalate [Lexapro] 5 mg PO DAILY 08/29/17 [History] rOPINIRole [Requip] 0.5 mg PO BID 10/10/17 [History] Past Medical History HEENT History: Reports: Impaired Vision Other HEENT History: Needs a tooth extraction. Cardiovascular History: Reports: Hypertension, SOB on Exertion, Syncope Respiratory History: Reports: Intubation, Previous Gastrointestinal History: Reports: Chronic Constipation, Chronic Diarrhea, Colon Polyp, Diverticulosis, Gastritis, GERD, GI Bleed, Irritable Bowel Syndrome , Other (See Below) Other Gastrointestinal History: Crohns 3 years ago [employer] History: Reports: Fibroids, Musculoskeletal History: Reports: Back Pain, Chronic Other Musculoskeletal History: chronic left knee pain due to knee replacement. degenarative disc disease with bulging discs. bad si joint, right side. tendonitis right wrist, CHRONIC L ANKLE PAIN Neurological History: Reports: Concussion, Migraines, Vertigo Psychiatric History: Reports: Addiction, Anxiety, Depression, Suicide Attempt, Other (See Below) Other Psychiatric History: adddition in 2006 Endocrine/Metabolic History: Reports: Hypothyroidism Dermatologic History: Reports: Other (See Below) Other Dermatologic History: intermittent rash left leg - Infectious Disease History Infectious Disease History: Reports: Chicken Pox - Past Surgical History GI Surgical History: Reports: Cholecystectomy, Colonoscopy, EGD Female Surgical History: Reports: Hysterectomy, Salpingo-Oophorectomy Musculoskeletal Surgical History: Reports: Knee Replacement Social & Family History - Family History Family Medical History: Noncontributory - Tobacco Use Smoking Status *Q: Current Every Day Smoker Years of Tobacco use: 28 Packs/Tins Daily: 1 - Caffeine Use Caffeine Use: Reports: None - Recreational Drug Use Recreational Drug Use: Yes Drug Use in Last 12 Months: Yes Recreational Drug Type: Reports: Marijuana/Hashish ED ROS GENERAL - Review of Systems Review Of Systems: See Below Constitutional: Denies: Fever, Chills HEENT: Reports: No Symptoms Respiratory: Reports: No Symptoms Cardiovascular: Reports: No Symptoms GI/Abdominal: Reports: Abdominal Pain, Flatus, Nausea, Vomiting : Reports: No Symptoms Musculoskeletal: Reports: No Symptoms Skin: Reports: No Symptoms Neurological: Reports: No Symptoms ED EXAM, GI/ABD - Physical Exam Exam: See Below Text/Narrative:: General: Female, moderate discomfort secondary to pain, alert and oriented x3 HEENT: head is atraumatic normocephalic, eyes pupils equal round reactive to light, sclera clear no conjunctivitis appreciated. Ears tympanic membranes clear and [place] landmarks and light reflex are present bilaterally canals are clear. Nose no septal deviation, nares are clear, no blood present. Mouth mucosa is moist and pink no erythema or exudate noted in soft palate, tongue is midline uvula is midline, dentition is intact. Neck: Supple no thyromegaly no tracheal deviation. Nodes: Cervical nodes subclavicular nodes nontender no palpable lymphadenopathy noted. Lungs: clear to auscultation bilaterally with symmetrical respirations, no adventitious noise appreciated. CV: Regular rate and rhythm S1 and S2 appreciated no murmurs rubs or gallops noted. Abdomen: Soft, tender right lower quadrant, no palpable masses or organomegaly appreciated, no distention no guarding bowel sounds are present, positive for psoas sign, obturator sign, heeltap sign Neuro: Cranial nerves II through XII grossly intact Skin: Warm and dry, intact Extremities: No lower extremity edema appreciated, pedal pulse is +2. Course - Vital Signs Last Recorded V/S: Last Vital Signs Temp 97.7 F 11/12/17 00:06 Pulse 81 11/12/17 00:06 Resp 14 11/12/17 00:06 BP 139/106 H 11/12/17 00:06 Pulse Ox 98 11/12/17 00:06 - Orders/Labs/Meds Orders: Active Orders 24 hr Category Date Time Status Peripheral IV Care [RC] . DIRECTED Care 11/12/17 00:14 Active Abdomen Pelvis w Cont [CT] Urgent Exams 11/12/17 00:14 Taken UA W/MICROSCOPIC [URIN] Urgent Lab 11/12/17 00:16 Ordered Lactated Ringers [Ringers, Lactated] 1,000 ml Med 11/12/17 00:15 Active IV ASDIRECTED Sodium Chloride 0.9% [Saline Flush] Med 11/12/17 00:14 Active 10 ml FLUSH ASDIRECTED PRN Peripheral IV Insertion Adult [OM.PC] Urgent Oth 11/12/17 00:14 Ordered Medication Orders Lactated Ringer's (Ringers, Lactated) 1,000 mls @ 999 mls/hr IV ASDIRECTED GHAZAL Last Admin: 11/12/17 00:33 Dose: 999 mls/hr Sodium Chloride (Saline Flush) 10 ml FLUSH ASDIRECTED PRN PRN Reason: Keep Vein Open Last Admin: 11/12/17 00:29 Dose: 10 ml Admin: 11/12/17 00:24 Dose: 10 ml Labs: Laboratory Tests 11/12/17 11/12/17 11/12/17 Range/Units 00:01 00:01 00:01 WBC 8.0 (4.5-11.0) K/uL RBC 4.93 (3.30-5.50) M/uL Hgb 13.8 (12.0-15.0) g/dL Hct 42.8 (36.0-48.0) % MCV 87 (80-98) fL MCH 28 (27-31) pg MCHC 32 (32-36) % Plt Count 253 (150-400) K/uL Neut % (Auto) 38 (36-66) % Lymph % (Auto) 48 H (24-44) % [place] % (Auto) 9 H (2-6) % Eos % (Auto) 4 (2-4) % Baso % (Auto) 1 (0-1) % Sodium 143 (140-148) mmol/L Potassium 3.6 (3.6-5.2) mmol/L Chloride 103 (100-108) mmol/L Carbon Dioxide 30 (21-32) mmol/L Anion Gap 10.3 (5.0-14.0) mmol/L BUN 19 H (7-18) mg/dL Creatinine 1.0 (0.6-1.0) mg/dL Est Cr Clr Drug Dosing 60.70 mL/min Estimated GFR (MDRD) 60 (>60) Glucose 100 (74-106) mg/dL Lactic Acid 1.4 (0.4-2.0) mmol/L Calcium 9.0 (8.5-10.1) mg/dL Total Bilirubin 0.4 D (0.2-1.0) mg/dL AST 29 D (15-37) U/L ALT 30 (12-78) U/L Alkaline Phosphatase 103 (46-116) U/L Total Protein 7.5 (6.4-8.2) g/dL Albumin 3.6 (3.4-5.0) g/dL Globulin 3.9 H (2.3-3.5) g/dL Albumin/Globulin Ratio 0.9 L (1.2-2.2) Lipase 106 (73-393) U/L Urine Color Urine Appearance Urine pH (4.5-8.0) Ur Specific [place] (1.008-1.030) Urine Protein (NEGATIVE) mg/dL Urine Glucose (UA) (NEGATIVE) mg/dL Urine Ketones (NEGATIVE) mg/dL Urine Occult Blood (NEGATIVE) Urine Nitrite (NEGATIVE) Urine Bilirubin (NEGATIVE) Urine Urobilinogen (NORMAL) mg/dL Ur Leukocyte Esterase (NEGATIVE) Urine RBC (0-5) Urine WBC (0-5) Ur Epithelial Cells Amorphous Sediment Urine Bacteria Urine Mucus 11/12/17 Range/Units 00:16 WBC (4.5-11.0) K/uL RBC (3.30-5.50) M/uL Hgb (12.0-15.0) g/dL Hct (36.0-48.0) % MCV (80-98) fL MCH (27-31) pg MCHC (32-36) % Plt Count (150-400) K/uL Neut % (Auto) (36-66) % Lymph % (Auto) (24-44) % [place] % (Auto) (2-6) % Eos % (Auto) (2-4) % Baso % (Auto) (0-1) % Sodium (140-148) mmol/L Potassium (3.6-5.2) mmol/L Chloride (100-108) mmol/L Carbon Dioxide (21-32) mmol/L Anion Gap (5.0-14.0) mmol/L BUN (7-18) mg/dL Creatinine (0.6-1.0) mg/dL Est Cr Clr Drug Dosing mL/min Estimated GFR (MDRD) (>60) Glucose (74-106) mg/dL Lactic Acid (0.4-2.0) mmol/L Calcium (8.5-10.1) mg/dL Total Bilirubin (0.2-1.0) mg/dL AST (15-37) U/L ALT (12-78) U/L Alkaline Phosphatase (46-116) U/L Total Protein (6.4-8.2) g/dL Albumin (3.4-5.0) g/dL Globulin (2.3-3.5) g/dL Albumin/Globulin Ratio (1.2-2.2) Lipase (73-393) U/L Urine Color Yellow Urine Appearance Slightly cloudy Urine pH 5.0 (4.5-8.0) Ur Specific [place] 1.020 (1.008-1.030) Urine Protein Trace (NEGATIVE) mg/dL Urine Glucose (UA) Normal (NEGATIVE) mg/dL Urine Ketones Negative (NEGATIVE) mg/dL Urine Occult Blood Negative (NEGATIVE) Urine Nitrite Negative (NEGATIVE) Urine Bilirubin Small (NEGATIVE) Urine Urobilinogen Normal (NORMAL) mg/dL Ur Leukocyte Esterase Negative (NEGATIVE) Urine RBC 0-5 (0-5) Urine WBC 0-5 (0-5) Ur Epithelial Cells Moderate Amorphous Sediment Not seen Urine Bacteria Moderate Urine Mucus Not seen Meds: Medications Generic Name Dose Route Start Last Admin Trade Name Freq PRN Reason Stop Dose Admin Lactated Ringer's 1,000 mls @ 999 mls/hr 11/12/17 00:15 11/12/17 00:33 Ringers, Lactated IV 999 mls/hr ASDIRECTED GHAZAL Administration Sodium Chloride 10 ml 11/12/17 00:14 11/12/17 00:29 Saline Flush FLUSH 10 ml ASDIRECTED PRN Administration Keep Vein Open Discontinued Medications Generic Name Dose Route Start Last Admin Trade Name Triny PRN Reason Stop Dose Admin Fentanyl 50 mcg 11/12/17 00:15 11/12/17 00:21 Sublimaze IVPUSH 11/12/17 00:16 50 mcg ONETIME ONE Administration Fentanyl 50 mcg 11/12/17 01:04 11/12/17 01:13 Sublimaze IVPUSH 11/12/17 01:05 50 mcg ONETIME ONE Administration Sodium Chloride 75 mls @ 3.5 mls/sec 11/12/17 00:38 11/12/17 00:49 Normal Saline IV 11/12/17 00:39 3.5 mls/sec ASDIRECTED STA Administration Iopamidol 100 ml 11/12/17 00:38 11/12/17 00:49 Isovue-300 (61%) IV 11/12/17 00:39 100 ml . DIRECTED STA Administration Ondansetron HCl 4 mg 11/12/17 00:15 11/12/17 00:21 Zofran IVPUSH 11/12/17 00:16 4 mg ONETIME ONE Administration Prochlorperazine Edisylate 5 mg 11/12/17 01:04 11/12/17 01:10 Compazine IVPUSH 11/12/17 01:05 5 mg ONETIME ONE Administration Departure - Departure Time of Disposition: 01:24 Disposition: Home, Self-Care 01 Condition: Good Clinical Impression: Abdominal pain Qualifiers: Abdominal location: right lower quadrant Qualified Code(s): R10.31 - Right lower quadrant pain - Discharge Information Referrals: Rowan Bran PA [Primary Care Provider] - Forms: ED Department Discharge Additional Instructions: Use hydrocodone as needed for pain control, use Zofran as needed for nausea and vomiting symptoms, Please followup with your primary care provider in one to 2 days if not better, please call return to the emergency department with worsening of symptoms. - My Orders Last 24 Hours: My Active Orders 11/12/17 00:14 Peripheral IV Care [RC] . DIRECTED Abdomen Pelvis w Cont [CT] Urgent Sodium Chloride 0.9% [Saline Flush] 10 ml FLUSH ASDIRECTED PRN Peripheral IV Insertion Adult [OM.PC] Urgent 11/12/17 00:15 Lactated Ringers [Ringers, Lactated] 1,000 ml IV ASDIRECTED 11/12/17 00:16 UA W/MICROSCOPIC [URIN] Urgent - Assessment/Plan Last 24 Hours: My Active Orders 11/12/17 00:14 Peripheral IV Care [RC] . DIRECTED Abdomen Pelvis w Cont [CT] Urgent Sodium Chloride 0.9% [Saline Flush] 10 ml FLUSH ASDIRECTED PRN Peripheral IV Insertion Adult [OM.PC] Urgent 11/12/17 00:15 Lactated Ringers [Ringers, Lactated] 1,000 ml IV ASDIRECTED 11/12/17 00:16 UA W/MICROSCOPIC [URIN] Urgent Plan: Assessment Acuity = acute Site and laterality = right lower quadrant pain complicated patient with known history of Crohn's disease Etiology = unclear etiology Manifestations = nausea and vomiting Location of injury = Home Lab values = CBC, CMP, lipase, urinalysis unremarkable CT scan shows no acute process Plan She had good relief combination Zofran, Compazine and fentanyl, will be discharged home with hydrocodone 5/325 one tab by mouth at 3 times a day when necessary total #6, Zofran 4 mg ODT 1 tablet by mouth 3 times a day when necessary total #5 however follow-up with her primary care in the next 1-2 days if no improvement This note was dictated using [employer] voice recognition software please call with any questions on syntax or grammar.
[2017-11-12] MEDS: Sodium Chloride 0.9% 10 ML Syringe FLUSH PRN ×2 (00:24→00:29)
[2017-11-12] MEDS ORDERED: Iopamidol 612 MG/ML 100 ML Bottle IV STA (00:38)
[2017-11-12] MEDS ORDERED: Sodium Chloride 0.9% 75 ML IV STA (00:38)
[2017-11-12] MEDS ORDERED: Prochlorperazine 10 MG/2 ML SDV IVPUSH ONE (01:04)
== END 2017-11-12 01:51 | disposition home or self-care (01) ==
LOC: JP.ED 23:46
DX: R10.31 Right lower quadrant pain (principal); Z88.8 Allergy status to other drugs, medicaments and biological substances; Z79.899 Other long term (current) drug therapy; F17.210 Nicotine dependence, cigarettes, uncomplicated
CPT/HCPCS: 36415; 74177; 80053; 81001; 83605; 83690; 85025; 96374; 96375; 99284; J0780; J2405; J3010; J7030; J7050; J7120; Q9967

== ENCOUNTER 2021-09-10 19:23 | Emergency (ER) | payer MEDICARE, OTHER ==
[2021-09-10] MEDS ORDERED: Bacitracin Oint 1 GM U/D Packet TOP ONE (19:25)
[2021-09-10] MEDS ORDERED: Lidocaine 1% 5 ML VIAL INJECT ONE (19:25)
[2021-09-10 19:45] VITALS: BP 126/78; PULSE 87
== END 2021-09-10 20:20 | disposition home or self-care (01) ==
LOC: JP.ED 19:23
DX: S60.453A Superficial foreign body of left middle finger, initial encounter (principal); E03.9 Hypothyroidism, unspecified; I10 Essential (primary) hypertension; Z88.0 Allergy status to penicillin; Z88.8 Allergy status to other drugs, medicaments and biological substances; W45.8XXA Other foreign body or object entering through skin, initial encounter
CPT/HCPCS: 99282; 99283

== ENCOUNTER 2022-07-12 20:45 | Emergency (ER) | payer MEDICARE, OTHER ==
[2022-07-12] MEDS ORDERED: Ondansetron 4 MG/2 ML SDV IVPUSH ONE (21:30)
[2022-07-12] MEDS ORDERED: HYDROmorphone 0.5 MG/0.5 ML Syringe IVPUSH ONE (21:30)
[2022-07-12 21:37] LABS: BASOPHILS ABSOLUTE AUTO 0.01 K/uL (0.00-0.10); BASOPHILS PERCENT AUTO 0.2 % (0.1-1.3); EOSINOPHILS ABSOLUTE AUTO 0.03 K/uL (0.00-0.40); EOSINOPHILS PERCENT AUTO 0.7 % (0.0-5.4); HEMATOCRIT 45.1 % (34.3-46.0); HEMOGLOBIN 14.6 g/dL (11.2-15.5); IMMATURE GRAN ABSOLUTE AUTO 0.01 K/uL (0.00-0.23); IMMATURE GRAN PERCENT AUTO 0.2 % (0.0-0.7); LYMPHOCYTES ABSOLUTE AUTO 0.81 K/uL (0.8-3.3); LYMPHOCYTES PERCENT AUTO 17.8 % (11.4-47.7); MEAN CORPUSCULAR HEMOGLOBIN 28.9 pg (31.6-35.5); MEAN CORPUSCULAR HGB CONC 32.4 g/dL (31.6-35.5); MEAN CORPUSCULAR VOLUME 89.3 fL (81.4-99.0); MONOCYTES ABSOLUTE AUTO 0.38 K/uL (0.20-0.90); MONOCYTES PERCENT AUTO 8.3 % (3.3-12.6); NEUTROPHILS ABSOLUTE AUTO 3.32 K/uL (1.0-7.6); NEUTROPHILS PERCENT AUTO 72.8 % (40.0-78.1); PLATELET COUNT,PLT 205 K/uL (130-375); RED BLOOD CELL COUNT 5.05 M/uL (3.77-5.24); WHITE BLOOD CELL COUNT,WBC 4.6 K/uL (3.2-11.0)
[2022-07-12] MEDS ORDERED: Sodium Chloride 0.9% 1,000 ML IV SCH ×2 (21:45→22:30)
[2022-07-12 21:57] LABS: ALANINE AMINOTRANSFERASE,ALT 23 U/L (12-78); ALBUMIN 3.4 g/dL (3.4-5.0); ALKALINE PHOSPHATASE 83 U/L (46-116); ASPARTATE AMNIOTRANSFERASE,AST 18 U/L (15-37); BILIRUBIN TOTAL 0.6 mg/dL (0.2-1.0); BLOOD UREA NITROGEN,BUN 23 mg/dL (7-18); C-REACTIVE PROTEIN 4.51 mg/dL (0.0-0.3); CALCIUM 8.3 mg/dL (8.5-10.1); CARBON DIOXIDE,CO2 28 mmol/L (21-32); CHLORIDE,CL 99 mmol/L (100-108); CREATININE 0.8 mg/dL (0.6-1.0); ESTIMATED GFR 90 mL/min (>60); GLUCOSE RANDOM 100 mg/dL (74-106); POTASSIUM,K 3.2 mmol/L (3.6-5.2); PROTEIN TOTAL,TP 6.9 g/dL (6.4-8.2); SODIUM,NA 133 mmol/L (140-148)
[2022-07-12 21:58] LABS: ANION GAP 9.2 mmol/L (5.0-14.0)
[2022-07-12 22:25] LABS: CORONAVIRUS COVID-19 NAA NEGATIVE (NEGATIVE); INFLUENZA A NAA NEGATIVE (NEGATIVE); INFLUENZA B NAA NEGATIVE (NEGATIVE); RESPIRATORY SYNCYTIAL VIR NAA NEGATIVE (NEGATIVE)
[2022-07-12] MEDS ORDERED: Iopamidol 612 MG/ML 100 ML Bottle IV SCH (22:30)
[2022-07-12] MEDS ORDERED: Sodium Chloride 0.9% 50 ML IV SCH (22:30)
[2022-07-12 22:32] VITALS: BP 103/64
[2022-07-12] MEDS ORDERED: Prochlorperazine 10 MG/2 ML SDV IVPUSH ONE (23:10)
[2022-07-12 23:22] LABS: APPEARANCE,URINE SLIGHTLY CLOUDY (CLEAR); BILIRUBIN,URINE NEGATIVE (NEGATIVE); COLOR,URINE YELLOW (YELLOW); GLUCOSE,URINE NEGATIVE (NEGATIVE); KETONES,URINE 15 mg/dL (NEGATIVE); LEUKOCYTE ESTERASE,URINE NEGATIVE (NEGATIVE); NITRITE,URINE NEGATIVE (NEGATIVE); OCCULT BLOOD,URINE NEGATIVE (NEGATIVE); PH,URINE 5.5 (5.0-8.0); PROTEIN,URINE NEGATIVE (NEGATIVE); UROBILINOGEN,URINE 0.2 EU/dL (0.2-1.0)
[2022-07-12 23:33] LABS: AMORPHOUS SEDIMENT,URINE NOT SEEN; BACTERIA,URINE FEW; EPITHELIAL CELLS,URINE MANY; MUCUS,URINE RARE; RBC,URINE 0-5 (0-5); WBC,URINE 0-5 (0-5)
[2022-07-12 23:35] VITALS: PULSE 94
== END 2022-07-12 23:58 | disposition home or self-care (01) ==
LOC: JP.ED 20:45
DX: B34.9 Viral infection, unspecified (principal); E86.0 Dehydration; I10 Essential (primary) hypertension; E03.9 Hypothyroidism, unspecified; K21.9 Gastro-esophageal reflux disease without esophagitis; Z88.8 Allergy status to other drugs, medicaments and biological substances; Z79.899 Other long term (current) drug therapy; Z72.0 Tobacco use; Z20.822 Contact with and (suspected) exposure to COVID-19
CPT/HCPCS: 0241U; 36415; 74177; 80053; 81001; 85025; 86140; 87081; 87880; 96361; 96374; 96375; 99283; 99284; J0780; J1170; J2405; J3490; J7030; Q9967

== ENCOUNTER 2023-11-02 21:22 | Emergency (ER) | payer MEDICARE, MEDICAID ==
[~2023-11-02 21:22] MED LIST changes: -Dextrose 5%-Lactated Ringers 1,000 ML IV SCH; -Glycopyrrolate 0.2 MG/ML 2 ML SYRINGE IVPUSH ONE; +Pramipexole 0.5 MG Tab PO SCH
[2023-11-02 21:49] LABS: BASOPHILS ABSOLUTE AUTO 0.05 K/uL (0.00-0.10); BASOPHILS PERCENT AUTO 0.8 % (0.1-1.3); EOSINOPHILS ABSOLUTE AUTO 0.14 K/uL (0.00-0.40); EOSINOPHILS PERCENT AUTO 2.3 % (0.0-5.4); HEMATOCRIT 37.5 % (34.3-46.0); HEMOGLOBIN 12.3 g/dL (11.2-15.5); IMMATURE GRAN ABSOLUTE AUTO 0.03 K/uL (0.00-0.23); IMMATURE GRAN PERCENT AUTO 0.5 % (0.0-0.7); LYMPHOCYTES ABSOLUTE AUTO 1.04 K/uL (0.8-3.3); LYMPHOCYTES PERCENT AUTO 17.4 % (11.4-47.7); MEAN CORPUSCULAR HEMOGLOBIN 28.8 pg (31.6-35.5); MEAN CORPUSCULAR HGB CONC 32.8 g/dL (31.6-35.5); MEAN CORPUSCULAR VOLUME 87.8 fL (81.4-99.0); MONOCYTES ABSOLUTE AUTO 0.68 K/uL (0.20-0.90); MONOCYTES PERCENT AUTO 11.4 % (3.3-12.6); NEUTROPHILS ABSOLUTE AUTO 4.05 K/uL (1.0-7.6); NEUTROPHILS PERCENT AUTO 67.6 % (40.0-78.1); PLATELET COUNT,PLT 162 K/uL (130-375); RED BLOOD CELL COUNT 4.27 M/uL (3.77-5.24)
[2023-11-02 22:00] LABS: ALANINE AMINOTRANSFERASE,ALT 21 U/L (12-78); ALBUMIN 3.3 g/dL (3.4-5.0); ALKALINE PHOSPHATASE 102 U/L (46-116); ANION GAP 9.5 mmol/L (5.0-14.0); ASPARTATE AMNIOTRANSFERASE,AST 13 U/L (15-37); BILIRUBIN TOTAL 0.2 mg/dL (0.2-1.0); BLOOD UREA NITROGEN,BUN 23 mg/dL (7-18); CALCIUM 8.2 mg/dL (8.5-10.1); CARBON DIOXIDE,CO2 26 mmol/L (21-32); CHLORIDE,CL 108 mmol/L (100-108); CREATININE 0.9 mg/dL (0.6-1.0); EST CRCL DRUG DOSING (CG) 63.14 mL/min; ESTIMATED GFR 77 mL/min (>60); GLUCOSE RANDOM 88 mg/dL (74-106); POTASSIUM,K 3.6 mmol/L (3.6-5.2); PROTEIN TOTAL,TP 6.5 g/dL (6.4-8.2); SODIUM,NA 143 mmol/L (140-148)
[2023-11-02 22:11] LABS: APPEARANCE,URINE CLEAR (CLEAR); BILIRUBIN,URINE NEGATIVE (NEGATIVE); COLOR,URINE YELLOW (YELLOW); GLUCOSE,URINE NEGATIVE (NEGATIVE); KETONES,URINE NEGATIVE (NEGATIVE); LEUKOCYTE ESTERASE,URINE NEGATIVE (NEGATIVE); NITRITE,URINE NEGATIVE (NEGATIVE); OCCULT BLOOD,URINE NEGATIVE (NEGATIVE); PH,URINE 5.5 (5.0-8.0); PROTEIN,URINE NEGATIVE (NEGATIVE); UROBILINOGEN,URINE 0.2 EU/dL (0.2-1.0)
[2023-11-02 22:14] LABS: AMPHETAMINES SCREEN, URINE NEGATIVE (NEGATIVE); BARBITURATE SCREEN,URINE NEGATIVE (NEGATIVE); BENZODIAZEPINES SCREEN,URINE PRESUMPTIVE POSITIVE (NEGATIVE); METHADONE SCREEN, URINE NEGATIVE (NEGATIVE); METHAMPHETAMINES SCREEN, URINE NEGATIVE (NEGATIVE); OXYCODONE SCREEN,URINE NEGATIVE (NEGATIVE); PROPOXYPHENE SCREEN,URINE NEGATIVE (NEGATIVE); THC SCREEN,URINE 50 NG/ML PRESUMPTIVE POSITIVE (NEGATIVE)
[2023-11-02 22:18] LABS: AMORPHOUS SEDIMENT,URINE NOT SEEN; BACTERIA,URINE FEW; EPITHELIAL CELLS,URINE MANY; MUCUS,URINE FEW; RBC,URINE 0-5 (0-5); WBC,URINE 0-5 (0-5)
[2023-11-02] MEDS: Sodium Chloride 0.9% 1,000 ML IV SCH (22:30)
[2023-11-02] MEDS: droPERidol 5 MG/2 ML SDV IVPUSH ONE (22:43)
[2023-11-02] MEDS: Pramipexole 0.5 MG Tab PO ONE (23:50)
[2023-11-03 01:31] VITALS: BP 135/78; PULSE 94
[2023-11-03] MEDS ORDERED: Pramipexole 0.5 MG Tab PO SCH (21:00)
[2023-11-03] MEDS ORDERED: Pramipexole 0.5 MG Tab PO ONE (23:22)
== END 2023-11-03 01:00 | disposition home or self-care (01) ==
LOC: JP.ED 21:22
DX: R40.4 Transient alteration of awareness (principal); I10 Essential (primary) hypertension; E03.9 Hypothyroidism, unspecified; Z90.49 Acquired absence of other specified parts of digestive tract; Z90.710 Acquired absence of both cervix and uterus; Z79.899 Other long term (current) drug therapy; Z79.82 Long term (current) use of aspirin; Z88.8 Allergy status to other drugs, medicaments and biological substances
CPT/HCPCS: 36415; 70450; 70496; 70498; 80053; 80305; 80307; 81001; 85025; 96361; 96372; 96374; 99285; A9270; J0515; J1790; J7030